=== PATIENT | female | born 2000 | race Caucasian/White ===

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

== ENCOUNTER → 2022-04-20 | Outpatient (CLI) | payer OTHER ==
[2022-04-20 18:12] LABS: Basophils # (A) 0.05 X 10*3/uL (0.00-0.10); Basophils % (A) 0.8 %; Eosinophils # (A) 0.32 X 10*3/uL (0.04-0.35); Eosinophils % (A) 5.2 %; HCT 40.5 % (37.2-46.3); HGB 13.4 g/dL (12.0-15.0); Immature Grans, Automated 0.2 %; Lymphocytes # (A) 1.77 X 10*3/uL (0.90-5.00); MCH 31.5 pg (27.0-32.0); MCHC 33.1 g/dL (32.0-37.0); MCV 95.1 fL (80.0-97.0); Mean Platelet Volume 9.4 fL (9.5-12.2); Monocytes # (A) 0.29 X 10*3/uL (0.20-1.00); Monocytes % (A) 4.8 %; NRBC Per 100 WBC 0 /100 WBCS (0.0-0.0); Neutrophils # (A) 3.66 X 10*3/uL (1.80-7.70); Platelet Count 296 X 10*3/uL (140-440); RBC 4.26 X 10*6/uL (4.10-5.20); RDW 12.2 % (11.5-14.5)
[2022-04-20 18:38] LABS: Albumin 4.8 g/dL (3.8-4.9); Albumin/Globulin Ratio 1.96 (1.60-3.17); Anion Gap 8.9 mmol/L (10.00-18.00); BUN/Creat Ratio 15.95 Ratio (12.00-20.00); Blood Urea Nitrogen 10.4 mg/dL (9.0-27.0); Calcium 9.7 mg/dL (8.7-10.3); Carbon Dioxide 28.3 mmol/L (20.0-27.5); Globulin 2.4 g/dL (1.6-3.3); Non-African American GFR(CKD) 127.7 (60.0-200.0); Potassium 4.4 mmol/L (3.5-5.5); T4, Free (Free Thyroxine) 1.14 ng/dL (0.830-1.430); Total Bilirubin 0.4 mg/dL (0.30-1.20); Total Protein 7.2 g/dL (6.2-8.2)
== END | disposition home or self-care (01) ==
LOC: LABWHC1 12:43
PROVIDERS: ATTEND Pediatrics Adolescent Medicine
DX: E55.9 Vitamin D deficiency, unspecified (principal); E63.9 Nutritional deficiency, unspecified; R63.6 Underweight
CPT/HCPCS: 36415; 80053; 82306; 84439; 84443; 85025